=== PATIENT | male | born 1950 | race Caucasian/White ===

== ENCOUNTER 2017-02-11 12:14 | Emergency (ER) | payer BC ==
--- NOTE | 2017-02-11 13:20 | XRAY Preliminary Report ---
Exam: XR Elbow 3 View LT IMPRESSION: Soft tissue swelling, but no evidence of fracture. [facility] SITE ID: [id number]
--- NOTE | 2017-02-11 13:22 | XRAY Report ---
EXAM: LEFT ELBOW RADIOGRAPHY EXAM DATE: 02/11/2017 01:13 PM. CLINICAL HISTORY: Fall olecrenon contusion . COMPARISON: None. TECHNIQUE: 3 views. FINDINGS: Bones: Normal. No fractures or bone lesions. Joints: Normal. No effusion. No subluxation. Soft Tissues: Posterior soft tissue swelling. IMPRESSION: Soft tissue swelling, but no evidence of fracture. [facility] Referring Provider Line: [phone] SITE ID: [id number]
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
[2017-02-11] MEDS ORDERED: LIDOCAINE 1% 2 ML VIAL ONE (13:27)
[2017-02-11] MEDS ORDERED: TETANUS/DIPHTHERIA/PERTUSSIS 0.5 ML SYRINGE IM ONE ×2 (13:56→14:02)
[2017-02-11 14:16] VITALS: BP 122/75
== END 2017-02-11 14:15 | disposition home or self-care (01) ==
LOC: ED 12:14
DX: S51.012A Laceration without foreign body of left elbow, initial encounter (principal); S50.312A Abrasion of left elbow, initial encounter; V19.9XXA Pedal cyclist (driver) (passenger) injured in unspecified traffic accident, initial encounter; Y93.55 Activity, bike riding; Z23 Encounter for immunization; F17.200 Nicotine dependence, unspecified, uncomplicated
CPT/HCPCS: 12002; 90471; 99282; 99283